=== PATIENT | female | born 1955 | race Caucasian/White ===

== ENCOUNTER 2017-01-05 14:16 | Emergency (ER) | payer MEDICARE ==
--- NOTE | 2017-01-05 14:36 | Emergency Department Record ---
History of Present Illness - General Chief Complaint: Back Pain/Injury Stated Complaint: ABDOMINAL/BACK PAIN Source: Patient Mode of Arrival: Ambulatory Limitations: No limitations - History of Present Illness Initial Comments: 61 yo female presents with left flank pain that started yesterday. The onset was at rest. The pain is sharp and is getting worse. No fevers. She has the urge to urinate more frequently. 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 Her stools are soft but not diarrhea. No vomiting. She has has a renal stone in the past. MD Complaint: Back pain, Other -: Days(s) (2) Place: Home Radiation: None Severity: Severe Quality: Aching, Sharp Consistency: Constant Improves With: None Worsens With: None Associated Symptoms: Abdominal pain - Related Data Allergies Allergy/AdvReac Type Severity Reaction Status Date / Time estrogens, conjugated Allergy Severe ANAPHYLAXIS Verified 01/05/17 14:28 [From Premarin] Penicillins Allergy Severe ANAPHYLAXIS Verified 01/05/17 14:28 codeine Allergy Intermediate NAUSEA Verified 01/05/17 14:28 tetracycline Allergy Intermediate DIZZINESS Verified 01/05/17 14:28 NSAIDS (Non-Steroidal AdvReac Unknown PT UNSURE Verified 01/05/17 14:28 Anti-Inflamma OF REACTION Sulfa (Sulfonamide AdvReac Unknown PT UNSURE Verified 01/05/17 14:28 Antibiotics) OF REACTION miacin Allergy Severe ANAPHYLAXIS Uncoded 08/22/15 14:50 Review of Systems Constitutional: Denies: Chills, Fever, Night sweats, Weakness Eyes: Reports: Other (blind). Denies: Eye discharge, Eye pain, Photophobia ENT: Denies: Congestion, Throat pain Respiratory: Denies: Cough Cardiovascular: Denies: Chest pain, Palpitations, Syncope Endocrine: Denies: Fatigue Gastrointestinal: Reports: As per HPI, Abdominal pain, Nausea. Denies: Diarrhea , Vomiting Genitourinary: Reports: Dysuria, Frequency Musculoskeletal: Reports: As per HPI, Back pain. Denies: Arthralgia Skin: Denies: Bruising, Change in color, Rash Neurological: Denies: Headache, Numbness, Vertigo, Weakness Psychiatric: Denies: Anxiety Hematological/Lymphatic: Denies: Anemia, Blood Clots, Easy bleeding, Easy bruising, Swollen glands Physical Exam - General General Appearance: Alert, Oriented x3, Cooperative, No acute distress Limitations: No limitations - Head Head exam: Normal inspection - Eye Eye exam: Normal appearance, PERRL. negative: Conjunctival injection, Periorbital swelling - ENT ENT exam: Normal exam, Mucous membranes moist Ear exam: Normal external inspection Nasal Exam: Normal inspection Mouth exam: Normal external inspection - Neck Neck exam: Normal inspection, Full ROM. negative: Tenderness - Respiratory Respiratory exam: Normal lung sounds bilaterally. negative: Respiratory distress - Cardiovascular Cardiovascular Exam: Regular rate, Normal rhythm, Normal heart sounds Peripheral Pulses: 2+: Radial (R), Radial (L) - GI/Abdominal GI/Abdominal exam: Soft, Tenderness (left flank). negative: Guarding, Rebound, Rigid - Rectal Rectal exam: Deferred - exam: Deferred - Extremities Extremities exam: Normal inspection, Full ROM, Normal capillary refill. negative: Tenderness - Back Back exam: Reports: Normal inspection, Full ROM. Denies: Muscle spasm, Rash noted, Tenderness - Neurological Neurological exam: Alert, Normal gait, Oriented X3 - Psychiatric Psychiatric exam: Normal affect, Normal mood - Skin Skin exam: Dry, Intact, Normal color, Warm Course - Reevaluation(s) Reevaluation #1: No acute changes on the CBC, CMP The UA demonstrates RBC's > 50. CT demonstrates a 2mm distal UVJ stone There is a small mass at the head of the pancreas that the radiologist recommends follow up non emergent contrast CT or MRI The patient was informed of the results and follow up 01/05/17 16:19 Pain is controlled at this time She is comfortable with the plan for DC home and monitoring for a passed stone 01/05/17 16:27 Medical Decision Making - Lab Data Result diagrams: 01/05/17 15:10 01/05/17 15:10 Disposition Disposition: Discharge Clinical Impression: Renal colic on left side Disposition: Home, Self-Care Condition: (1) Good Instructions: Kidney Stones (ED) Additional Instructions: strain your urine to look for stones return if you have fever, uncontrolled pain or any new concerns Referrals: REUBEN FREY M.D. [MEDICAL DOCTOR] - Forms: Patient Portal Access Time of Disposition: 16:22 Quality - Quality Measures Quality Measures: N/A - Blood Pressure Screening Does Patient Have Any of the Following: No Blood Pressure Classification: Pre-Hypertensive BP Reading Systolic Measurement: 140 Diastolic Measurement: 80 Screening for High Blood Pressure: < Pre-Hypertensive BP, F/U Documented > [ [id number]] Pre-Hypertensive Follow-up Interventions: Referral to alternative/primary care provider.
[2017-01-05] MEDS ORDERED: 0.9 % SODIUM CHLORIDE 1,000 ML BAG IV ONE (14:57)
[2017-01-05] MEDS ORDERED: MORPHINE SULFATE 5 MG/ML PFS IVP ONE (14:58)
[2017-01-05] MEDS ORDERED: ACETAMINOPHEN 1,000 MG/100 ML BTL IVPB ONE (14:58)
[2017-01-05 15:04] LABS: URINE APPEARANCE CLEAR; URINE BILIRUBIN NEGATIVE (NEGATIVE); URINE BLOOD LARGE (NEGATIVE); URINE COLOR YELLOW; URINE GLUCOSE (UA) NEGATIVE (NEGATIVE); URINE KETONE NEGATIVE (NEGATIVE); URINE LEUKOCYTE ESTERASE NEGATIVE (NEGATIVE); URINE NITRITE NEGATIVE (NEGATIVE); URINE PROTEIN NEGATIVE (NEGATIVE); URINE UROBILINOGEN 0.2 E.U./dL (0.20 - 1.00)
[2017-01-05 15:13] LABS: URINE CALCIUM OXALATE CRYSTALS 1+ /hpf; URINE HYALINE CAST FEW /lpf; URINE RBC >50 (NONE SEEN); URINE SQUAMOUS EPITHELIAL CELL 0 - 2 /hpf; URINE WBC 0 - 2 (0-2/hpf)
[2017-01-05 15:18] LABS: BASO % 0.3 % (0-6); EOS % 1.2 % (0-6); GRAN % 65.6 % (47-80); HEMATOCRIT 41.7 % (35.0-47.0); HEMOGLOBIN 13.7 gm/dl (11.6-16.0); LYMPH % 22.4 % (16-45); MEAN CELL VOLUME 92.7 fl (81-97); MEAN CORPUSCULAR HEMOGLOBIN 30.4 pg (27-33); MEAN CORPUSCULAR HGB CONC 32.9 g/dl (32-36); MEAN PLATELET VOLUME 8.8 fl (7.4-10.4); MONO % 10.5 % (0-9); PLATELET COUNT 302 K/uL (130-400); RED CELL DISTRIBUTION WIDTH 12.3 % (11.5-14.5); WHITE BLOOD COUNT W/O DIFF 5.8 K/uL (4.2-12.2)
[2017-01-05 15:37] LABS: ALB/GLOB RATIO 1.5 (1.1-1.8); ALBUMIN 4.3 g/dL (4.0-5.0); ALKALINE PHOSPHATASE 89 U/L (35-104); ALT/SGPT 21 U/L (<33); AST/SGOT 22 U/L (10.0-35.0); BLOOD UREA NITROGEN 14 mg/dL (6-20); CREATININE 0.5 mg/dL (0.5-0.9); EST GLOMERULAR FILTRATION RATE > 60 mL/min; GLUCOSE,RANDOM 123 mg/dL (74-109); LIPASE 27 U/L (13-60); TOTAL PROTEIN 7.2 g/dL (6.6-8.7)
--- NOTE | 2017-01-07 09:00 | CT SCAN REPORT ---
EXAM: CT OF THE ABDOMEN AND PELVIS WITHOUT CONTRAST HISTORY: PAIN. TECHNIQUE: CT of the abdomen and pelvis without oral or IV contrast was obtained. This limits evaluation of bowel and solid visceral organs. Comparison: None. FINDINGS: Limited evaluation of the lung bases is unremarkable. The osseous structures are grossly intact. Limited evaluation of the liver, spleen, and adrenal glands is unremarkable. There is a somewhat poorly defined area of diminished attenuation in the region of the pancreatic head measuring 2.1 x 2.2 cm. Correlate with pancreatic enzyme levels. Consider follow-up with contrast enhanced exam. There is mild left sided hydronephrosis and hydroureter secondary to a 2 mm left UVJ calculus. No other definitive urinary tract calculi. The urinary bladder is not distended, limiting its evaluation. No gross evidence for bowel obstruction. Moderate atheromatous change. IMPRESSION: 1. MILD LEFT HYDRONEPHROSIS AND HYDROURETER SECONDARY TO A 2 MM LEFT UVJ CALCULUS. 2. VAGUE HYPODENSITY IN THE REGION OF THE PANCREATIC HEAD. CORRELATE WITH ENZYME LEVELS. RECOMMEND NONEMERGENT FOLLOW-UP WITH MULTIPHASIC CT OR MRI. JOB NUMBER: [id number] MTDD
== END 2017-01-05 15:50 | disposition home or self-care (01) ==
LOC: ER 14:16
DX: N13.2 Hydronephrosis with renal and ureteral calculous obstruction (principal); R35.0 Frequency of micturition
CPT/HCPCS: 74176; 80053; 81001; 83690; 85025; 96374; 96375; 99284; J7030

== ENCOUNTER 2018-04-28 09:32 | Day surgery (SDC) | payer MEDICARE ==
[~2018-04-28 09:32] MED LIST: ACETAMINOPHEN 1,000 MG/100 ML BTL IV ONE; FAMOTIDINE 20MG TABLET PO ONE; MECLIZINE 25 MG TABLET PO ONE; METOCLOPRAMIDE 10 MG TABLET PO ONE
[2018-04-28] MEDS ORDERED: BUPIVACAINE 0.25% W/EPI MPF 30ML VIAL IVP ONE (09:33)
--- NOTE | 2018-04-29 08:40 | Operative Note ---
DATE OF SURGERY: 04/28/2018 Surgeon: Efrain Andrew DO PREOPERATIVE DIAGNOSIS: Right lower extremity wound. POSTOPERATIVE DIAGNOSIS: Right lower extremity wound. OPERATION: Excisional debridement of right lower extremity wound measuring 5 x 5 cm down to the periosteum of the tibia. Indication: The patient is a 62-year-old female who fell about a month and a half ago and developed a hematoma on the anterior aspect of her aparicio. When first she saw me about 4 weeks after she fell, this clearly needed to be debrided. We did discuss debridement. Risks, benefits, and alternatives were discussed. Risks include bleeding, infection, sepsis. She understood this fully. Thereafter, consent was signed and questions answered. PROCEDURE: The patient was taken to the operating room and placed in a supine position. General anesthesia was administered per the department of anesthesia. The patient's leg was prepped and draped in the usual fashion. The area around the wound was then anesthetized with a total of 10 mL of 0.25% Sensorcaine with epinephrine. The was then debrided, draining what appeared to be an infected hematoma. Aerobic and anaerobic cultures were taken. There was necrotic tissue noted which was debrided using sharp dissection down to good bleeding pink tissue. This was then thoroughly irrigated. This was then packed with iodoform and covered with Kerlix. We will set up home wound care. She may benefit from a wound VAC as well. The wound size measured about 5 x 5 cm down to the periosteum. ADDENDUM: The wound was packed with iodoform. We will set up home nursing to pack this every other day for the next 3 weeks with 1/2-inch iodoform gauze. I will call the patient when cultures are back. Thank you for this referral. CC: SELMA Radford
== END 2018-04-28 11:45 | disposition home or self-care (01) ==
LOC: SUR 09:32
PROVIDERS: ATTEND Surgery
DX: M86.8X6 Other osteomyelitis, lower leg (principal); W19.XXXA Unspecified fall, initial encounter; I10 Essential (primary) hypertension; E78.00 Pure hypercholesterolemia, unspecified; K21.9 Gastro-esophageal reflux disease without esophagitis; H40.9 Unspecified glaucoma